=== PATIENT | male | born 1985 | race African-American/Black ===

== ENCOUNTER 2019-11-14 18:52 | Emergency (ER) | payer OTHER ==
[~2019-11-14] VITALS: Ht 193 cm; Wt 90.7 kg
[~2019-11-14 18:52] MED LIST: ACID REDUCER PO; B12INJ PO; BUDEPRION SR150 MG; DESYREL100 MG; FLAGYL500 MG PO; FLEXERIL PO; KLONOPIN2 MG PO; LATUDA120 MG PO; LATUDA40 MG PO; NORCO 5-325 TA1 EACH PO; RISPERDAL 3 MG T3 M1 PO; ULTRAM 50MG TAB50 MG PO; ZOFRAN ODT4 MG PO
[2019-11-14 18:57] VITALS: BP 150/91
[2019-11-14] MEDS ORDERED: NEURONTIN 400M400 M2 PO (19:26)
[2019-11-14] MEDS ORDERED: SERTRALINE HCL100 MG PO (19:27)
[2019-11-14] MEDS ORDERED: ZOLOFT 50 MG TA50 MG PO (19:27)
[2019-11-14 19:40] LABS: URINE BILIRUBIN NEGATIVE (Negative); URINE BLOOD NEGATIVE (Negative); URINE CLARITY CLEAR; URINE COLOR YELLOW; URINE GLUCOSE-RANDOM* NEGATIVE (Negative); URINE KETONES NEGATIVE (Negative); URINE LEUKOCYTES-REFLEX TRACE (Negative); URINE NITRITE-REFLEX NEGATIVE (Negative); URINE PROTEIN (DIPSTICK) NEGATIVE (Negative); URINE SPECIFIC GRAVITY <= 1.005 (1.005-1.035)
[2019-11-14 19:55] LABS: BASOPHILS 1.1 % (0.0-2.0); EOSINOPHILS 1.6 % (0.0-3.0); HEMATOCRIT 36.3 % (42.0-52.0); HEMOGLOBIN 11.3 gm/dL (14.0-18.0); LYMPHOCYTES 57.5 % (24.0-44.0); MCHC 31.2 g/dL (28.0-37.0); MONOCYTES 9.3 % (1.0-8.0); PLATELET COUNT 326 thou/uL (150-400); POLYS 30.5 % (36.0-66.0); RBC 4.71 mil/uL (4.50-6.00); RDW 16.2 % (10.5-14.5); WBC 6.5 thou/uL (4.0-11.0)
[2019-11-14 19:59] LABS: CREATININE 1.1 mg/dL (0.7-1.3); POTASSIUM 3.6 mmol/L (3.5-5.1)
[2019-11-14 20:05] LABS: ALBUMIN 3.7 g/dL (3.4-5.0); TOTAL BILIRUBIN 0.3 mg/dL (<0.1-1.0)
[2019-11-14] MEDS ORDERED: ONDANSETRON HCL4 M2 PO (21:19)
[2019-11-14] MEDS ORDERED: OMEPRAZOLE 20 M20 M1 PO (21:19)
--- NOTE | 2019-11-15 17:21 | EKG ---
[address] [address] ELECTROCARDIOGRAM REPORT Name: FELIPA HADLEY Room #: DEP Scott#: [id number] Admission: 11/14/19 Attend Phys: Discharge: 11/14/19 Date of : 87 Report #: [id number] THIS REPORT FOR: //name// [facility] ED Test Date: 2019-11-14 Test Time: 18:52:01 Pat Name: FELIPA HADLEY Department: Room: Gender: Weathercaster: RHETT : 1985 Requested By: Georges Childs Order Number: [id number] MD: Durga Lombardo Measurements Intervals [place] Rate: 67 P: 42 [place]: 171 QRS: 35 QRSD: 77 T: 23 QT: 375 QTc: 396 Interpretive Statements Sinus rhythm Compared to ECG 10/07/2015 22:46:11 No significant changes Electronically Signed On 11-15-2019 17:21:05 [place] by Durga Lombardo [email or web address] <ELECTRONICALLY SIGNED> By: Durga Lombardo MD 11/15/19 1721 185 51 MD KATHY Ordaz
== END 2019-11-14 21:48 | disposition home or self-care (01) ==
LOC: ER 18:52
PROVIDERS: Nurse Practitioner
DX: R11.10 Vomiting, unspecified (principal); R10.32 Left lower quadrant pain; R07.9 Chest pain, unspecified; K21.9 Gastro-esophageal reflux disease without esophagitis; F31.9 Bipolar disorder, unspecified

== ENCOUNTER 2019-11-20 13:40 | Inpatient (IN) | payer OTHER ==
[~2019-11-20] VITALS: Ht 193 cm; Wt 129.7 kg
[~2019-11-20 13:40] MED LIST changes: +NEURONTIN 400M400 M2 PO; +OMEPRAZOLE 20 M20 M1 PO; +ONDANSETRON HCL4 M2 PO; +SERTRALINE HCL100 MG PO; +ZOLOFT 50 MG TA50 MG PO
[2019-11-20 13:51] VITALS: BP 130/72
[2019-11-20 14:19] LABS: URINE BILIRUBIN NEGATIVE (Negative); URINE BLOOD TRACE (Negative); URINE CLARITY CLEAR; URINE COLOR YELLOW; URINE GLUCOSE-RANDOM* NEGATIVE (Negative); URINE KETONES NEGATIVE (Negative); URINE LEUKOCYTES-REFLEX NEGATIVE (Negative); URINE NITRITE-REFLEX NEGATIVE (Negative); URINE PROTEIN (DIPSTICK) 1+ (Negative); URINE UROBILINOGEN 0.2 E.U./dl (0.2-1.0)
[2019-11-20 14:21] LABS: ABSOLUTE NEUTROPHILS 3.2 thou/uL (1.4-8.2); BASOPHILS 1.7 % (0.0-2.0); EOSINOPHILS 0.9 % (0.0-3.0); HEMOGLOBIN 10.6 gm/dL (14.0-18.0); LYMPHOCYTES 33.3 % (24.0-44.0); MCH 24.8 pg (26.0-34.0); MCHC 32.1 g/dL (28.0-37.0); MCV 77.4 fL (80.0-100.0); MONOCYTES 10.7 % (1.0-8.0); PLATELET COUNT 315 thou/uL (150-400); POLYS 53.4 % (36.0-66.0); RBC 4.27 mil/uL (4.50-6.00); RDW 16.9 % (10.5-14.5)
[2019-11-20 14:30] LABS: CALCIUM 9.1 mg/dL (8.5-10.1); CREATININE 2.1 mg/dL (0.7-1.3); POTASSIUM 4.1 mmol/L (3.5-5.1)
[2019-11-20 14:33] LABS: CASTS None Seen /LPF (None Seen); CRYSTALS None Seen /LPF (None Seen); SQUAMOUS 0-3 Few /LPF (0-3); URINE WBC-REFLEX 0-5 Rare /HPF (0-5)
[2019-11-20 14:34] LABS: BACTERIA-REFLEX 1-9 Few /HPF (None Seen)
[2019-11-20 14:36] LABS: URINE RBC 0-2 Rare /HPF (0-2)
[2019-11-20 14:37] LABS: ALBUMIN 3.7 g/dL (3.4-5.0); TOTAL BILIRUBIN 0.2 mg/dL (<0.1-1.0); TOTAL PROTEIN 7.5 g/dL (6.4-8.2)
[2019-11-20 15:00] LABS: AMP/METHAMP Negative (Negative); BARBITURATES Negative (Negative); BENZODIAZEPINES Negative (Negative); COCAINE Negative (Negative); METHADONE Negative (Negative); OPIATES Negative (Negative); PCP Negative (Negative)
[2019-11-20 16:06] VITALS: BP 119/74
[2019-11-20 17:27] LABS: % SATURATION 7 % (20-39); IRON 20 ug/dL (65-175); TIBC 272 ug/dL (250-450)
[2019-11-20 17:54] VITALS: BP 133/76
[2019-11-20 18:35] VITALS: BP 128/78
--- NOTE | 2019-11-20 19:44 | NUR ---
34 YO MALE ADMITTED TO 439. A&OX4. C/O ABD PAIN AND NAUSEA. ALSO STATES HE HAS NOT HAD HIS PSYCH MEDS ALL DAY. IV INTACT IN R AC. IV CONT FLUIDS STARTED, CLONIPIN, GABAPENTIN, ZOFRAN AND FENTYNL GIVEN FOR SYMPTOMS. ORIENTED PT TO ROOM/ CALL LIGHT.
[2019-11-20 22:38] VITALS: BP 110/73
--- NOTE | 2019-11-21 03:30 | NUR ---
ASSESSED AT START OF SHIFT A&OX4 C/O LOWER OF ABD AND NON CARDIAC CHEST PAIN. PAIN MED AND SCHEDULED NITRO GIVE. PT STATED FEELING MUCH BETTER AFTER NITRO GIVENX1 AND COMPLETE CHEST RELIEF. TAP WATER ENEMA GIVENX2 THIS SHIFT. 1 LARGE LOOSE STOOL NOTED SO FAR WILL CONT TO MONITOR. FAMILY BY BEDSIDE. PT NPO AFTER MIDNIGHT FOR COLONOSCPY TOMORROW. PT UP AD RAEANN WILL CONT WITH POC TILL EOS.
[2019-11-21 05:35] VITALS: BP 107/72
[2019-11-21 05:57] LABS: ALBUMIN 3.4 g/dL (3.4-5.0); CALCIUM 8.7 mg/dL (8.5-10.1); CREATININE 2.2 mg/dL (0.7-1.3); PHOSPHORUS 4.7 mg/dL (2.5-4.9); POTASSIUM 4.6 mmol/L (3.5-5.1)
[2019-11-21 08:20] VITALS: BP 133/78
--- NOTE | 2019-11-21 13:56 | NUR ---
PT A&OX4. AMBULATES SELF IN ROOM AND HALLWAY. IV INFUSING FLUIDS W/O COMPS IN R AC. NPO SINCE MN FOR EGD AND POSSIBLE COLONOSCOPY. ATIVAN IV ORDERED AND GIVEN THIS AM FOR ANXIETY. MOTHER AND S/O AT THE BEDSIDE. WILL CONT POC.
--- NOTE | 2019-11-21 15:40 | NUR ---
Pt is currently out of his room getting EGD. Engineering Program Analyst visited with the pt's twin brother Rolan who is also a pt here. The pt and his brother are known to cm from other admissions. 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 They both live with their mother. The pt is up ad vidhya and normally indep. He has a mental health history and follows closely with his psychiatrist. He has supportive family. He has Medicare part A coverage through [employer] disability d/t schizophrenia/bipolar disorder. No cm interventions are indicated at this time. Will remain available should dc needs arise.
[2019-11-21 16:37] VITALS: BP 148/85
[2019-11-21 20:15] VITALS: BP 126/75
--- NOTE | 2019-11-21 23:00 | NUR ---
ASSESSMENT COMPLETED UPON START OF SHIFT. PT INTREASTED IN KNOWING WHEN HE MAY BE DISCHARGED. PT ALSO WANTED TO HAVE THE MEDS ORDERED BY DR ROMAN. PT DENIES ANY ABDOMINAL PAIN OR ANY NAUSEA. MOM IN ROOM. PT IS IN A PLEASANT MOOD AND IS COOPEARATIVE.DRINKING AND EATING OKAY.PROGRESSING TOWARDS CARE GOALS.
[2019-11-22 04:33] VITALS: BP 142/77
--- NOTE | 2019-11-22 05:55 | P ---
[facility] [place] [address] PROCEDURE REPORT Name: FELIPA HADLEY BONANZA Room #: 439-P ADM IN M.R.#: [id number] Admission: 11/20/19 Attend Phys: Karo Flores Discharge: Date of : 87 Report #: [id number] THIS REPORT FOR: //name// CC: [facility] physician/PCP Karo Flores Gatito Nigelcora AURY MCBRIDE DATE OF SERVICE: 11/21/2019 PROCEDURE: Esophagogastroduodenoscopy with biopsy. He is a patient of Dr. Flores. INDICATION FOR PROCEDURE: Abdominal pain, nausea, vomiting, microcytic anemia. Informed consent for this procedure was obtained after the risks of the procedure were explained. The risks include but are not limited to the following: Bleeding, perforation, infection, complications of sedation and the possibility I could miss something. Anesthesia kindly provided deep sedation for this procedure. With the patient in the left lateral decubitus position, the Olympus upper videoscope was introduced through the upper esophageal sphincter and advanced under direct visualization to the third portion of the duodenum. Findings are noted on withdrawal of the scope. The visualized portion of the second portion of the duodenum, third portion of the duodenum appeared normal. The ampulla appears normal. The duodenal bulb is mildly erythematous in patches. Etiology is not certain. Pylorus, normal mucosa. Antrum, erosive antral gastritis is noted. Biopsies were obtained x 2 for histopathology. Good hemostasis was noted after those biopsies. Body, normal mucosa. Cardia and fundus, normal mucosa. Retroflex view did not reveal any hiatal hernia. The scope was withdrawn to the esophagus. The Z-line is appropriately located at the top of the gastric folds and appears normal. The esophageal mucosa appears normal throughout its entirety. The scope was withdrawn. The patient went to the recovery area in stable condition. He tolerated the procedure well. IMPRESSION: 1. Patchy erythema of the duodenal bulb. 2. Erosive antritis biopsies x 2, taken with good hemostasis noted after the biopsies. RECOMMENDATIONS: To await the biopsy results. We will continue him on Protonix 40 mg p.o. every day for 2 months. I would recommend the patient avoid using Goody's powders as they contain aspirin that may cause ulcers and erosions. He [address] [address] PROCEDURE REPORT Name: FELIPA HADLEY BONANZA Room #: 439-P [facility] IN .R.#: [id number] Admission: 11/20/19 Attend Phys: Karo Flores Discharge: Date of : 87 Report #: [id number] can have a diet as tolerated. We will guaiac stools for blood. He should have a colonoscopy as an outpatient if his stools remain guaiac positive after treatment for the erosive antritis. Thank you very much once again for allowing me to participate in his care. <ELECTRONICALLY SIGNED> By: Jackie Jha DO 11/22/19 0555 1453 2253 Jackie Jha DO /nt
[2019-11-22 06:39] LABS: ALBUMIN 3.2 g/dL (3.4-5.0); CALCIUM 8.6 mg/dL (8.5-10.1); CREATININE 2.2 mg/dL (0.7-1.3); PHOSPHORUS 5.2 mg/dL (2.5-4.9); POTASSIUM 4.2 mmol/L (3.5-5.1)
[2019-11-22 07:30] VITALS: BP 109/64
[2019-11-22] MEDS ORDERED: PANTOPRAZOLE SO40 M1 PO (09:50)
--- NOTE | 2019-11-22 10:39 | NUR ---
PT RESTING IN BED TOOK AM MEDS. NO C/O PAIN. RENAL DOCTOR HERE TO SEE STATES NO DIAYLSIS NEEDED. HOSPITALIST HERE TO SEE PATIENT AND DISCHARGED PATIENT FOR TODAY.
[2019-11-22 12:50] VITALS: BP 109/64
--- NOTE | 2019-11-22 14:43 | NUR ---
DISCHARGE PAPERS GONE OVER WITH PATIENT SIGNED AND COPY IN CHART. IV ACSESS DCD. ALL BELONGINGS PACKED AND SENT WITH PATIENT.
[2019-11-22 14:45] VITALS: BP 109/64
--- NOTE | 2019-11-23 16:06 | PATH ---
[facility] [address] [place] [address] PATHOLOGY RPT PROCEDURE Name: YARED TERRAZAS WINFALL Room #: 439-P DIS IN M.R.#: [id number] Admission: 11/20/19 Date of : 87 Discharge: 11/22/19 Report #: [id number] Path Case #: [id number] [facility] Accession Number: [id number] . 01 Material submitted: . stomach - GASTRIC BX . 01 Clinical history: . R/O H. pylori Pre-op diagnosis: Abdominal pain Post-op diagnosis: Erosive gastritis . 02 Diagnosis: Gastric mucosa, gastric rule out H. pylori, endoscopic biopsy: - Moderate reactive gastropathy. - Negative for intestinal metaplasia or atrophy. - Negative for Helicobacter pylori (properly-controlled immunohistochemical stain performed). . (IUV:mml; 11/23/2019) QL 11/23/2019 1215 Local . 02 Electronically signed: . La Felipe MD, Pathologist NPI- [id number] . 01 Gross description: . The specimen is received in formalin, labeled "Yared Terrazas, gastric biopsy, R/O H. pylori". Received are two segments of pale izaguirre soft tissue ranging in size from 0.3 to 0.5 cm in maximum dimensions. The specimen is submitted entirely in cassette A1. (CAA; 11/22/2019) QA/[facility] 11/22/2019 0939 Local . 02 Pathologist provided ICD-10: K31.9 . 02 CPT . 007847, T97561 Specimen Comment: A courtesy copy of this report has been sent to [phone] Specimen Comment: Report sent to Performed at: 01 [facility] [address] [id number] MD Robby Guzman MD Phone: [phone] Performed at: [address] [address] PATHOLOGY RPT PROCEDURE Name: YARED TERRAZAS Room #: 439-P [facility] IN M.R.#: [id number] Admission: 11/20/19 Date of : 87 Discharge: 11/22/19 Report #: [id number] Path Case #: [id number] [address] [place] [id number] MD La Felipe MD Phone: [phone]
== END 2019-11-22 14:46 | disposition home or self-care (01) | DRG 392 ==
LOC: ER 13:40 → EROBS 15:55 → 4S 15:55
PROVIDERS: Nurse Practitioner; Physician Assistant; ADMIT Hospitalist
PROC: 0DB68ZX Excision of Stomach, Via Natural or Artificial Opening Endoscopic, Diagnostic (ICD-10-PCS; principal; 2019-11-21)
DX: K29.60 Other gastritis without bleeding (principal); F13.239 Sedative, hypnotic or anxiolytic dependence with withdrawal, unspecified; N17.9 Acute kidney failure, unspecified; D50.9 Iron deficiency anemia, unspecified; K21.9 Gastro-esophageal reflux disease without esophagitis; F31.9 Bipolar disorder, unspecified; E86.0 Dehydration; F43.10 Post-traumatic stress disorder, unspecified; F20.9 Schizophrenia, unspecified; L53.8 Other specified erythematous conditions; N14.1 Nephropathy induced by other drugs, medicaments and biological substances; T50.8X5A Adverse effect of diagnostic agents, initial encounter; Z87.891 Personal history of nicotine dependence; Y92.89 Other specified places as the place of occurrence of the external cause; Z79.899 Other long term (current) drug therapy
CPT/HCPCS: 10195; 62110; 62900; 70005

== ENCOUNTER → 2020-06-02 | Outpatient (CLI) | payer OTHER ==
[~2020-06-02] MED LIST changes: +PANTOPRAZOLE SO40 M1 PO
== END ==
LOC: ULTRA 08:41
PROVIDERS: ATTEND Family Medicine
DX: K80.80 Other cholelithiasis without obstruction (principal)

== ENCOUNTER → 2020-06-24 | Outpatient (CLI) | payer OTHER | LOC: NUC 06-23 14:00 | PROVIDERS: ATTEND Surgery | DX: R10.10 Upper abdominal pain, unspecified (principal) ==

== ENCOUNTER → 2020-07-11 | Outpatient (CLI) | payer OTHER | LOC: LAB 08:18 | PROVIDERS: ATTEND Anesthesiology | DX: Z01.812 Encounter for preprocedural laboratory examination (principal); Z20.828 Contact with and (suspected) exposure to other viral communicable diseases ==

== ENCOUNTER 2021-02-02 13:46 | Emergency (ER) | payer OTHER ==
[~2021-02-02] VITALS: Ht 193 cm; Wt 122.5 kg
[2021-02-02] MEDS ORDERED: CLONAZEPAM2 MG PO ×2 (13:57→15:21)
[2021-02-02] MEDS ORDERED: PROZAC20 MG PO (13:57)
[2021-02-02] MEDS ORDERED: OXCARBAZEPINE600 MG PO ×2 (13:57→15:20)
[2021-02-02] MEDS ORDERED: ESKALITH300 MG PO (13:57)
[2021-02-02 14:38] LABS: HEMATOCRIT 38.5 % (42.0-52.0); HEMOGLOBIN 12.2 gm/dL (14.0-18.0); MCH 25.1 pg (26.0-34.0); MCHC 31.6 g/dL (28.0-37.0); MCV 79.5 fL (80.0-100.0); RBC 4.84 mil/uL (4.50-6.00); RDW 16.3 % (10.5-14.5); WBC 8.6 thou/uL (4.0-11.0)
[2021-02-02 14:55] LABS: CREATININE 1.4 mg/dL (0.7-1.3); POTASSIUM 3.5 mmol/L (3.5-5.1)
[2021-02-02 15:03] LABS: ALBUMIN 4.1 g/dL (3.4-5.0); TOTAL BILIRUBIN 0.4 mg/dL (0.2-1.0); TOTAL PROTEIN 8.1 g/dL (6.4-8.2)
[2021-02-02 15:41] VITALS: BP 134/73
== END 2021-02-02 15:41 | disposition home or self-care (01) ==
LOC: ER 13:46
PROVIDERS: Nurse Practitioner Family
DX: R04.2 Hemoptysis (principal); K21.9 Gastro-esophageal reflux disease without esophagitis; Z79.899 Other long term (current) drug therapy

== ENCOUNTER 2021-11-05 17:12 | Inpatient (IN) | payer OTHER ==
[~2021-11-05] VITALS: Ht 195.6 cm; Wt 122.5 kg
[2021-11-05 17:12] VITALS: BP 144/88
[~2021-11-05 17:12] MED LIST changes: +CLONAZEPAM2 MG PO; +ESKALITH300 MG PO; +OXCARBAZEPINE600 MG PO; +PROZAC20 MG PO
--- NOTE | 2021-11-05 17:13 | NUR ---
1700 30 MG ETOMIDATE GIVEN THRU IV RAC 120 MG SUCCS GIVEN 1701 7.0 ET TUBE PLACED, 23 @ LIP 1704 OG PLACED 70 @ LIP 1712 RAD AT BEDSIDE FOR CXR
[2021-11-05 17:37] LABS: HEMATOCRIT 44.3 % (42.0-52.0); HEMOGLOBIN 12.3 gm/dL (14.0-18.0); MCH 24.4 pg (26.0-34.0); MCHC 27.8 g/dL (28.0-37.0); PLATELET COUNT 366 thou/uL (150-400); RBC 5.04 mil/uL (4.50-6.00); RDW 18.1 % (10.5-14.5); WBC 20.5 thou/uL (4.0-11.0)
[2021-11-05 17:41] LABS: ALBUMIN 4.6 g/dL (3.4-5.0); ANION GAP 34 mmol/L (7-16); BUN 14 mg/dL (7-18); CALCIUM 11.8 mg/dL (8.5-10.1); CHLORIDE 106 mmol/L (98-107); DIRECT BILIRUBIN 0.2 mg/dL (<0.1-0.2); GLUCOSE 281 mg/dL (74-106); LIPASE 84 U/L (73-393); SALICYLATE < 2.8 mg/dL (2.8-20.0); SGOT 60 U/L (15-37); SGPT 41 U/L (16-63); SODIUM 149 mmol/L (136-145); TOTAL BILIRUBIN 0.6 mg/dL (0.2-1.0); TOTAL PROTEIN 8.8 g/dL (6.4-8.2)
[2021-11-05 17:43] LABS: CO2 9 mmol/L (21-32)
[2021-11-05 17:45] LABS: BE(vivo) -25.7 mmol/L (-2 to +3); PCO2 30.9 mmHg (35.0-45.0); PO2 109.1 mmHg (80.0-100.0); sO2 93.7 % (92.0-98.0)
[2021-11-05 17:46] LABS: pH 6.908 (7.360-7.450)
[2021-11-05 17:53] LABS: URINE BILIRUBIN NEGATIVE (Negative); URINE BLOOD NEGATIVE (Negative); URINE CLARITY CLEAR; URINE COLOR YELLOW; URINE GLUCOSE-RANDOM* NEGATIVE (Negative); URINE KETONES 1+ (Negative); URINE LEUKOCYTES-REFLEX NEGATIVE (Negative); URINE NITRITE-REFLEX NEGATIVE (Negative); URINE PROTEIN (DIPSTICK) NEGATIVE (Negative); URINE SPECIFIC GRAVITY 1.025 (1.005-1.035)
[2021-11-05 18:07] LABS: AMP/METHAMP Negative (Negative); BARBITURATES Negative (Negative); BENZODIAZEPINES Negative (Negative); COCAINE Negative (Negative); METHADONE Negative (Negative); OPIATES Negative (Negative); PCP Negative (Negative)
[2021-11-05 20:11] LABS: ABSOLUTE NEUTROPHILS 5.3 thou/uL (1.4-8.2); METAMYELOCYTES 3 %
[2021-11-05 21:07] LABS: BE(vivo) -6.2 mmol/L (-2 to +3); HCO3 18.2 mmol/L (22.0-26.0); PCO2 32.2 mmHg (35.0-45.0); PO2 118.1 mmHg (80.0-100.0); pH 7.369 (7.360-7.450); sO2 98.2 % (92.0-98.0)
[2021-11-06 02:29] LABS: HEMOGLOBIN 11.4 gm/dL (14.0-18.0); MCHC 30.9 g/dL (28.0-37.0); RBC 4.57 mil/uL (4.50-6.00); RDW 16.4 % (10.5-14.5); WBC 10.1 thou/uL (4.0-11.0)
[2021-11-06 02:35] LABS: CREATININE 1.9 mg/dL (0.7-1.3)
[2021-11-06 02:56] LABS: CALCIUM 8.5 mg/dL (8.5-10.1); POTASSIUM 3.6 mmol/L (3.5-5.1)
[2021-11-06 02:59] LABS: MCV 80.8 fL (80.0-100.0)
[2021-11-06 06:00] VITALS: BP 117/74
--- NOTE | 2021-11-06 07:47 | EKG ---
[address] [address] ELECTROCARDIOGRAM REPORT Name: FELIPA HADLEY Room #: 170-1 ADM IN M.R.#: [id number] Admission: 11/05/21 Attend Phys: Nathaniel Phillips MD Discharge: Date of : 87 Report #: [id number] [facility] ED Test Date: 2021-11-05 Test Time: 17:12:22 Pat Name: FELIPA HADLEY Department: Room: 170 Gender: M Flight Attendant/Inflight Supervisor: SHANT : 1985 Requested By: Eladio Toure Order Number: [id number] MD: Douglas Barajas Measurements Intervals [place] Rate: 122 P: 150 SD: 134 QRS: 69 QRSD: 94 T: -8 QT: 340 QTc: 485 Interpretive Statements Sinus or ectopic atrial tachycardia Borderline T abnormalities, diffuse leads Borderline prolonged QT interval Baseline wander in lead(s) V5,V6 Compared to ECG 11/14/2019 18:52:01 T-wave abnormality now present Sinus rhythm no longer present Electronically Signed On 11-06-2021 7:46:55 DAYCARE MANAGER by Douglas Barajas [email or web address] <ELECTRONICALLY SIGNED> By: Douglas Barajas MD, FAC 11/06/21 0746 171 11 Douglas Barajas MD, [facility] /EPI
[2021-11-06 09:42] LABS: BE(vivo) -2.6 mmol/L (-2 to +3); PCO2 42.8 mmHg (35.0-45.0); PO2 61.1 mmHg (80.0-100.0); pH 7.348 (7.360-7.450); sO2 90.2 % (92.0-98.0)
[2021-11-06 12:03] VITALS: BP 114/73
--- NOTE | 2021-11-06 15:07 | NUR ---
IJ PLACED IN ER
[2021-11-06 22:15] LABS: BE(vivo) -6.2 mmol/L (-2 to +3); HCO3 20.8 mmol/L (22.0-26.0); PCO2 47.9 mmHg (35.0-45.0); PO2 85.5 mmHg (80.0-100.0); pH 7.256 (7.360-7.450)
[2021-11-07 02:31] VITALS: BP 152/79
[2021-11-07 04:39] VITALS: BP 124/81
--- NOTE | 2021-11-07 04:44 | NUR ---
PT ADMITTED TO RM 201 FROM ER, ALERT AND ORIENTED WITH PERIODS OF CONFUSION, ST ON TELE, ADMISSION ASSESSMENT, EDUCATION AND HX COMPLETED, L SHOULDER SLING IN PLACE, TOLERATED THIN LIQUIDS, ON 10L OF O2 VIA NASAL CANNULA, NO ACUTE DISTRESS, WILL CONTINUE TO MONITOR
[2021-11-07 06:06] LABS: GLYCOHEMOGLOBIN (HGB A1C) 5.7 % (4.8-5.6)
[2021-11-07 07:31] VITALS: BP 152/84
--- NOTE | 2021-11-07 10:35 | HC ---
[facility] [place] [address] CONSULTATION Name: FELIPA AHDLEY [place] Room #: 201-P [facility] IN M.R.#: [id number] Admission: 11/05/21 Attend Phys: Karo Flores Discharge: Date of : 87 Report #: [id number] THIS REPORT FOR: cc: David Umanzor MD, Neal A. MD Kneidel, Matthew T. MD ~ DATE OF SERVICE: 11/06/2021 CHIEF COMPLAINT: Left shoulder dislocation. HISTORY OF PRESENT ILLNESS: This is a 36-year-old gentleman who presented yesterday to the Emergency Room with altered mental status and seizures. He had multiple seizures yesterday and there was concern to protect his own airway, so he was intubated. He apparently had a central line placed today and on those x-rays they noted a left shoulder fracture dislocation. MEDICAL HISTORY: Significant for seizures. FAMILY HISTORY: Positive for diabetes. He has a history of paranoid schizophrenia, PTSD, anxiety, bipolar disorder, depression, anxiety, gastroesophageal reflux disease. SURGICAL HISTORY: Significant for testicular surgery and cholecystectomy. SOCIAL HISTORY: Negative for tobacco or alcohol use. PHYSICAL EXAMINATION: The patient is intubated. He does have pain with any range of motion through his left upper extremity consistent with a shoulder dislocation. PROCEDURE: In listing the help of the anesthesiologist, the patient was provided propofol and using a traction maneuver, his shoulder was reduced as verified with x-ray verification. IMPRESSION: Left shoulder closed dislocation, status post reduction. PLAN: At this point will be to proceed with a shoulder immobilizer for management of the dislocation. He is to be nonweightbearing to his left upper extremity. [facility] [address] [place] [address] CONSULTATION Name: FELIPA HADLEY RAY Room #: 201-P ADM IN M.R.#: [id number] Admission: 11/05/21 Attend Phys: Karo Flores Discharge: Date of : 87 Report #: [id number] Thank you for allowing me to participate in the care of this pleasant patient. We will follow along with you. <ELECTRONICALLY SIGNED> By: Dennis Booth MD 11/07/21 1035 1515 2121 Dennis Booth MD /nt
[2021-11-07 11:39] VITALS: BP 128/72
[2021-11-07 15:15] VITALS: BP 146/76
--- NOTE | 2021-11-07 17:48 | NUR ---
Patient is A/O with unorganized thinking, Auditory hallucinations noted off and on through out the day. PRN seroquel given. Patient thought process appears better with tv off and external stimulations are minimized. vss afebrile. continues on sz precautions
[2021-11-07 19:08] VITALS: BP 157/103
[2021-11-08 03:04] VITALS: BP 161/111
--- NOTE | 2021-11-08 03:04 | NUR ---
NURSING NOTE: SHIFT SUMMARY: PT ALERT AND ORIENTED TO PERSON AND PLACE. HAS PERIODS OF CONFUSION WITH AUDITORY AND VISUAL HALLUCINATIONS. AT START OF SHIFT, THIS NURSE ATTEMPTED TO ASK PATIENT IF IT WAS OK TO GET HIS BLOOD SUGAR. PT STUCK HAND OUT IF TO GET HIS BLOOD SUGAR TAKEN, AND THEN YANKED IT AWAY STATING, "I DON'T THINK SO." HE THEN PROCEEDED TO DEMAND HIS MEDICATIONS "RIGHT NOW". THIS NURSE WENT AND RETRIEVED ALL OF PATIENT'S MEDICATIONS THAT WERE DUE AND BRUOUGHT THEM TO THE PATIENT. WHEN ATTEMPTED TO GIVE PAITENT THE MEDICATIONS, HE STATED, I DON'T THINK SO AND TURNED HIS HEAD AWAY." TWO OTHER NURSES ON UNIT ATTEMPTED TO GIVE THE PATIENT HIS MEDICATIONS AND HE EITHER JUST STARED AT THEM OR STATED, "I DON'T THINK SO." PT BEHAVIOR HAS REMAINED THE SAME THROUGHOUT THE SHIFT, WITH PATIENT REFUSING ANY TYPE OF PATIENT CARE. WAS ABLE TO OBTAIN 2 SETS OF VS BUT THE PATIENT WAS VERY VERBALLY AGGRESSIVE BOTH TIMES, YELLING OUT AND ASKING FOR PEOPLE THAT WERE NOT HERE. HAS NOT NAPPED OR SLEPT ALL SHIFT. CURRENTLY SITTING UP IN BED, EATING AND WATCHING TELEVISION. ALL VS AND ASSESSMENTS CHARTED, WILL CONTINUE TO MONITOR.
--- NOTE | 2021-11-08 04:31 | NUR ---
NURSING NOTE: GEODON GIVEN: AT APPROXIMATELY 0330 TODAY, PT BEGAN TO YELL FROM ROOM AND REPEATEDLY PUT ON HIS CALL LIGHT ASKING FOR HIS TWIN BROTHER AND MAKING RANDOM UNCOMPREHENSIBLE COMMENTS. THIS RN AND FARZAD RN. ATTEMPTED TO TALK WITH PATIENT AND DESCALATE THE BEHAVIOR WITH REORIENTATION AND REDIRECTION. PT LET THIS NURSE REPLACE CARDIAC LEADS THAT HE HAD TAKEN OFF AND THEN HIS AFFECT CHANGED AND HE STARTED SHOUTING RANDOM ACCUSATIONS FIXATING ON "THE COLOR WHEEL,AND EVERYTHING BAD HAPPENS ON TUESDAY". JAYME INFO PRINT PRESS OPERATOR NOTIFIED AT THIS TIME AND ORDERS RECEIVED FOR 1MG IV ATIVAN X1 TIME. SECURITY NOTIFIED AT SAME TIME D/T PATIENT SWINGING HIS ARMS OUT, SHOVING HIS FOOD TRAY OFF THE TABLE AND HITTING THIS NURSE WITH A CUP FULL OF WATER. INFO PRINT PRESS OPERATOR NOTIFIED PER CUPROUS CHLORIDE HELPER AND ORDERS FOR GEODON 10 MG X1 TIME RECEIVED. MEDICATION GIVEN ORDERED WITH ASSISTANCE PER SECURITY. PT CONTINUED TO YELL AND RANT FOR APPROXIMATELY 20 MINUTES AND IS NOW RESTING WITH EYES CLOSED. RESP EVEN AND NON LABORED. WILL CONTINUE TO MONITOR.
[2021-11-08 07:48] VITALS: BP 152/97
[2021-11-08 11:38] VITALS: BP 117/68
[2021-11-08 16:50] VITALS: BP 144/74
[2021-11-08 19:32] VITALS: BP 157/87
--- NOTE | 2021-11-09 04:10 | NUR ---
IRRITABLE, IMPULSIVE AND NON COMPLIANT. CONTINUOUSLY ON THE CALL REYNOSO WITH RANDOM REQUESTS SUCH CHICKEN, MONEY FROM HIS MOM, TO HAVE HIS SADLER TAKEN OUT. INITIALLY STATES THAT HE IS UNABLKE TO WALK BECAUSE OF HIS SHOULDER. TAKES SOME MEDICATIONS WHILE REFUSING OTHERS. DOES NOT RESPOND WELL TO REDIRECTION. NO S/S OF DISTRESS NOTED.
[2021-11-09 04:33] VITALS: BP 147/91
[2021-11-09 07:29] VITALS: BP 180/113
[2021-11-09 11:05] VITALS: BP 152/104
--- NOTE | 2021-11-09 14:28 | NUR ---
TOOK OVER CARE OF THIS PATIENT AT 0700. PT VERBALLY AGGRESSIVE WITH STAFF AT THROUGHOUT ENTIRE SHIFT. PT NOW DOES NOT RESPOND TO STAFF'S QUESTIONS AND REFUSES ALL PATIENT CARES. PT HAS REFUSED ALL MEDICATIONS DURING THIS SHIFT. PT STARES AT STAFF AND DOES NOT RESPOND. PT LAYING IN BED WATCHING TV AT THIS TIME. PT APPEARS IN NO DISTRESS. PHYSICAL ASSESSMENTS CHARTED. VSS. FALL PRECAUTIONS AND SEIZURE PRECAUTIONS IN PLACE.
[2021-11-09 15:10] VITALS: BP 142/91
--- NOTE | 2021-11-09 15:29 | NUR ---
PATIENT ADMITTED FOR STATUS EPILEPTICUS. CHART REVIEWED AND DISCUSSED WITH CARE TEAM. CM MET WITH PT THIS DAY. CM ROLE INTRODUCED. PT WOULD NOT SPEAK OR HAVE EYE CONTACT WITH CM. SPOKE TO PTS NURSE FOR UPDATES. AWAITING THERAPY RECOMMENDATION FOR INPUT ON HOME HEALTH IF INDICATED. STAFF REPORTS PT CAN BE AGRESSIVE WITH WORDS AND IMPULSIVE. SECURITY WAS CALLED. THIS CM CALLED PTS FATHER, AUTHERIZED CONTACT. LEFT MESSAGE FOR RETURN CALL TO ASSIST WITH DC PLANNING. CM WILL FOLLOW.
--- NOTE | 2021-11-09 18:37 | NUR ---
PT REFUSING ALL PATIENT CARES, ORAL AND IV MEDICATIONS. PATIENT'S MOTHER SPOKE WITH DR. ROMAN REGARDING CASE. PRN IM MEDICATIONS RECEIVED FROM DR. ROMAN TO ASSIST WITH PATIENTS ANXIETY AND AGGRESSION. WILL CONTINUE TO MONITOR. PT DOES NOT APPEAR IN ANY DISTRESS. CONTINUES TO NOT RESPOND TO STAFF EXCEPT WITH VERBALLY AGGRESIVE OUTBURSTS.
--- NOTE | 2021-11-10 06:21 | NUR ---
ASSUMED CARE OF PT AT 1900. PT ASSESSED TO BE AOX4 60F PRESENTING WITH SEPSIS AND WOUNDS. PT WAS ABLE TO REST QUIETLY THROUGHOUT THE NIGHT WITH FEW COMPLAINTS, VSS. PT CAN AMBULATES X1 WITH A WALKER TO THE BATHROOM, IS STABLE ON ROOM AIR, VOIDS AFTER SADLER REMOVAL, PAIN AND ANXIETY CONTROLLED WITH ORAL MEDICATIONS, SACRAL WOUNDS DRESSED WITH PAD. NO FURTHER ISSUES, WILL CONT TO MONITOR.
[2021-11-10 07:05] VITALS: BP 150/103
--- NOTE | 2021-11-10 07:19 | NUR ---
ASSUMED CARE OF PT AT 1900. PT ASSESSED TO BE AOX4 36M PRESENTING WITH UNCONTROLLED PSYCH ISSUES SECONDARY TO SEIZURES. PT WAS ABLE TO REST IN ROOM THROUGHOUT THE NIGHT, VSS. PT IS EXTREMELY DIFFICULT AND DOES NOT WANT ANYONE TO MESS WITH HIM, TOUCH HIM, OR TO GET MEDICATIONS. EARLY IN PM HAD SECURITY ASSIST WITH IM INJECTIONS. INJECTIONS DID LITTLE FOR PT. PT CONTINUES TO REFUSE ALL ORAL MEDS AFTER EDUCATION, SEEMS TO SOIL HIMSELF TO ANNOY STAFF, WILL NOT RESPOND TO PROMPTS OR QUESTIONS, ETC. THOUGHT TIME TALKING ALONE WITH PT FOR AN HOUR MAY HAVE BUILT SOME RAP[place], BUT SEEMS TO DISIPPATE QUICKLY SURROUNDING PSYCHOSIS.
[2021-11-10 11:00] VITALS: BP 133/94
--- NOTE | 2021-11-10 11:25 | NUR ---
PATIENT HAD AN INCONTINENT BOWEL MOVEMENT IN BED AND IS REFUSING TO ALLOW STAFF TO CLEAN HIM DESPITE EDUCATION PROVIDED TO PATIENT. WILL FOLLOW-UP WITH PATIENT PERIODICALLY TO RE-EVALUATE WHETHER HE WILL ALLOW US TO CLEAN HIM.
--- NOTE | 2021-11-10 14:22 | NUR ---
OSWALDO SPOKE TO ESTRELLITA WITH [facility] REGARDING A CONSULT FOR INPATIENT PSYCH. SHE INDICATED SHE WOULD HAVE CRIPPLE CUTTER OUT TODAY FOR EVAL. CM WILL FOLLOW.
[2021-11-10 15:28] VITALS: BP 149/85
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
--- NOTE | 2021-11-10 16:00 | NUR ---
JOSE MANUEL WITH [facility] CAME TO SEE PT THIS DAY. CM INSTRUCTED PT UNABLE TO ADMIT TO [facility] AT THIS TIME BECAUSE WAS ADMITTED TO HOSPITAL. PTS CAN ONLY BE ADMITTED TO [facility] THROUGHT THE ED. PT CAN HOWEVER GO TO [facility]. [address] [place] [address]. 9-9 AND MUST ARRIVE BEFORE 730P TO BE SEEN. PT CAN WALK IN FOR SERVICES. JOSE MANUEL REPORTS PT IS NOT A DANGER TO HIMSELF. UNSURE OF HOW PT WILL TRANSPORT TO [facility]. CM CALLED PT CONTACT MOOKIE CARDENAS AND LEFT ANOTHER MESSAGE. [facility] IS PROVIDER FOR REDISCOVER AND THIS IS PTS LOCATION BASED ON PTS ZIPCODE. CM WILL CONTINUE TO REACH MOTHER OR FATHER FOR DC PLANNING.
[2021-11-10 19:29] VITALS: BP 146/82
[2021-11-11 03:21] VITALS: BP 168/108
--- NOTE | 2021-11-11 03:51 | NUR ---
RECEIVED PATIENT AT 1900H.ASSESSMENT DONE CHARTED.HAD EPISODES OF AGRESSIVENESS AND MOSTLY NON COMPLIANT WITH CARE.AGREES TO TAKE SOME MEDS BUT REFUSES OTHER MEDS.FALL PREVENTION MEASURES MAINTAINED.SEIZURE PRECAUTION OBSERVED.NO SIGNS OF DISTRESS.TO CONTINOUSLY MONITOR.
[2021-11-11 05:15] VITALS: BP 145/85
[2021-11-11 05:56] LABS: URINE BILIRUBIN NEGATIVE (Negative); URINE BLOOD 3+ (Negative); URINE CLARITY CLEAR; URINE COLOR YELLOW; URINE GLUCOSE-RANDOM* NEGATIVE (Negative); URINE KETONES 1+ (Negative); URINE LEUKOCYTES-REFLEX NEGATIVE (Negative); URINE NITRITE-REFLEX NEGATIVE (Negative); URINE PROTEIN (DIPSTICK) TRACE (Negative); URINE SPECIFIC GRAVITY 1.015 (1.005-1.035); URINE UROBILINOGEN 0.2 E.U./dl (0.2-1.0)
[2021-11-11 07:00] VITALS: BP 144/81
[2021-11-11 07:05] LABS: CASTS None Seen /LPF (None Seen); SQUAMOUS 0-3 Few /LPF (0-3)
[2021-11-11 07:06] LABS: BACTERIA-REFLEX 1-9 Few /HPF (None Seen); CRYSTALS None Seen /LPF (None Seen); URINE RBC 1-2 Rare /HPF (NONE SEEN); URINE WBC-REFLEX 0-5 Rare /HPF (0-5)
[2021-11-11 12:08] VITALS: BP 151/104
--- NOTE | 2021-11-11 13:30 | NUR ---
[facility] CM SPOKE TO PT WHO WOULD NOT ANSWER MY QUESTIONS OR HAVE EYE CONTACT. CM SPOKE TO DR ROMAN WHO CLARIFIED PT IS NOT VOLUNTARILY WILLING TO DISCHARGE TO IN PSYCH FACILTY. 2 AFFIDAVITS PLACED ON CHART ONE FROM DR ROMAN AND ONE FROM RN. PT IS NOT MEDICALLY STABLE TO DC THIS DAY. CM WILL CONTINUE TO FOLLOW FOR DC PLANNING.
[2021-11-11 19:07] VITALS: BP 119/80
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
[2021-11-12] VITALS (19 sets, daily range): BP systolic 118–167; BP diastolic 72–134
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
--- NOTE | 2021-11-12 07:53 | NUR ---
RN RECEIVED ASSIGNMENT FROM INSURANCE AGENT, WAS TOLD FROM INSURANCE AGENT PATIENT HAS BEEN AGITATED ALL EVENING, RN WITNESSED PATIENT TREMBLING THE BED SHAKING THEN SUDDENLY RELAXING, VERY VOLATILE PRESENTATIONS, VERY UNPREDICTABLE, WHEN IN THE ROOM WITH THE PATIENT, PT IS HAVING FLIGHT OF THOUGHTS, INCOHERENT SPEECHES, SPEECHES THAT DO NOT CONNECT, TALKING ABOUT "HITLER AND BLACKS". PT TRYING TO GET OUT OF BED FEW TIMES, PUTTING HIS HEAD UP "YALL NEED TO GET ME OFF OF THIS, I AM NOT A AGITATIONAL PERSON", RN DOES NOT FEEL SAFE AT ALL FOR PATIENT TO GET OUT OF RESTRAINTS AT THIS TIME. RN CONTACTED REGARDING ADJUSTMENT OF CURRENT MEDICATION REGIMEN AND NEEDING ANOTHER EVAL SINCE THE LAST NIGHT'S EVENT. RN WILL REMAIN IN THE PATIENT'S ROOM.
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
--- NOTE | 2021-11-12 14:08 | NUR ---
Cont's to sit bolt upright in bed periodically. Talking nonstop. Inappropriate laughing that lasts 1-2 minutes. Talking to people not in room. Does not reorient. Hands & feet cool to touch. Refuses blanket.--vw
[2021-11-12 19:40] LABS: ALBUMIN 3.1 g/dL (3.4-5.0); DIRECT BILIRUBIN 0.2 mg/dL (<0.1-0.2); TOTAL BILIRUBIN 0.4 mg/dL (0.2-1.0); TOTAL PROTEIN 7.1 g/dL (6.4-8.2)
[2021-11-13] VITALS (12 sets, daily range): BP systolic 109–158; BP diastolic 61–104
--- NOTE | 2021-11-13 06:25 | NUR ---
ASSUMED CARE OF PT AT 1900. PT INITIALLY ON FOUR POINT RESTRAINTS. RESTRAINTS CHANGED TO BILATERAL SECURITY RESTRAINTS AT 0230, PT TOLERATED CHANGE WELL. PT HAS BEEN VERY DISTRUSTFUL OF STAFF AND EASILY IRRITATED. SCHEDULED ATIVAN AND PRN AGITATION MEDS GIVEN DOCUMENTED. CONTINOUS OBSERVATION MAINTAINED THROUGHOUT SHIFT.
--- NOTE | 2021-11-13 08:22 | HC ---
[facility] [place] [address] CONSULTATION Name: FELIPA HADLEY Room #: [facility]- ADM IN M.R.#: [id number] Admission: 11/05/21 Attend Phys: Karo Flores Discharge: Date of : 87 Report #: [id number] THIS REPORT FOR: cc: David Umanzor MD, Neal A. MD Barry,Sumanth Dale MD ~ DATE OF SERVICE: 11/12/2021 INFECTIOUS DISEASE CONSULTATION ATTENDING PHYSICIAN: Dr. Flores. REASON FOR EVALUATION: Nosocomial fevers, primarily low-grade. HISTORY OF PRESENT ILLNESS: Chart reviewed. The patient examined. This is a 36-year-old gentleman with paranoid schizophrenia, bipolar disorder. He was hospitalized a week ago with altered mental status and seizure, reporting he was acting bizarre. He had apparently stopped taking his psychiatric medicines few days prior that was treated with the seizures apparently at that time. He has been hospitalized, attempted to reinitiate his therapy. He is unable to give any details of his history. He is quite agitated and aggressive. He is actually restrained at this point. Vitals have been collected over the course of the hospitalization and noted to have low-grade temperature elevations even dating back to 11/07/2021, more evident by 11/09/2021, high of 100.5 has been recorded. He initially was started on therapy with vancomycin and Zosyn and latter was discontinued on 11/09/2021 and one former previous to that. He has had evaluation on urinalysis that was collected from 11/11/2021 and was generally unremarkable. Chest x-ray showed improving infiltrates, felt to be edema. Blood cultures have been collected and are sterile thus far. He was noted to have significant acidemia on blood gas with pH 6.908 on the initial testing on 11/05/2021. Review of additional labs noted some mild elevation of the liver function tests on admission, specifically AST, has undergone imaging studies including head CT, which showed no acute abnormalities. He did have an abdominal plain film which was ordered; however, canceled. He has been unwilling to participate in his care. ALLERGIES: GEODON. CURRENT MEDICATIONS: Include lorazepam, chlorpromazine, valproate, Haldol, clonazepam, pantoprazole, ipratropium and albuterol inhaler, quetiapine, enoxaparin, acetaminophen. PAST MEDICAL HISTORY: As described above paranoid schizophrenia, bipolar disease, reflux, PTSD, panic attacks. SOCIAL HISTORY: Former smoker, fairly regular alcohol, not to excess; previous [facility] [address] [place] [address] CONSULTATION Name: FELIPA HADLEY GOODELLS Room #: [facility] IN M.R.#: [id number] Admission: 11/05/21 Attend Phys: Karo Flores Discharge: Date of : 87 Report #: [id number] history of marijuana use. FAMILY HISTORY: Noncontributory. REVIEW OF SYSTEMS: Unobtainable. PHYSICAL EXAMINATION: GENERAL: He is quite angry, aggressive. He is restrained. There is no evident focal weakness of the limbs. VITAL SIGNS: Temperature earlier 100.3, more recently 99.4; pulse 64, respirations 13, blood pressure 144/92. SKIN: Warm, dry, no rashes. HEENT: Exam is limited. NECK: Supple. LUNGS: To have listed to those appear to be clear. ABDOMEN: There is no overt peritoneal signs due to percussion. GENITOURINARY AND RECTAL: Deferred. LABORATORY DATA: Blood cultures collected on 11/10/2021 are sterile thus far. Coronavirus testing was negative. Chest x-ray and urinalysis described above. ASSESSMENT AND PLAN: Low-grade temperature elevations. The patient has been difficult to evaluate. He has been refusing. On exam, there is not overt evidence to support by at least some basic labs of x-ray of pneumonitis or urinary tract infection, which would be a perhaps common. It can exclude either drug-induced hepatitis or simply a hypersensitivity to one of his many medications. It is notable he has a temperature/pulse dissociation at times. I would consider stopping all nonessential medicines. Certainly, it could be a viral etiology or a noninfectious cause as well. He has been refusing blood draws, but we will go and check an abdominal ultrasound. I was unable to examine his teeth that is certainly potential as well. I think we will hold on antibiotics at present. <ELECTRONICALLY SIGNED> By: Sumanth Boudreaux MD 11/13/21 0822 [id number] Sumanth Boudreaux MD /nt
--- NOTE | 2021-11-13 11:33 | 2DMMODE ---
[facility] [address] [place] [address] 2 D/M-MODE ECHOCARDIOGRAM Name: FELIPA HADLEY RAY Room #: 244-P ADM IN M.R.#: [id number] Admission: 11/05/21 Attend Phys: Karo Flores Discharge: Date of : 87 Report #: [id number] THIS REPORT FOR: cc: David Umanzor MD, Neal A. MD Park, Jin S. MD ~ APPROVED REPORT Study performed: 11/13/2021 10:48:45 EXAM: Comprehensive 2D, Doppler, and color-flow Echocardiogram Patient Location: ICU Room #: 244 Status: routine BSA: 2.56 HR: 108 bpm BP: 124/72 mmHg Rhythm: Tachycardia Other Information Study Quality: Adequate/flat on back. Indications Arrhythmia 2D Dimensions RVDd: 37.16 mm IVSd: 8.69 (7-11mm) LVOT Diam: 22.31 (18-24mm) LVDd: 51.33 mm PWd: 8.23 (7-11mm) Ascending Ao: 34.89 (22-36mm) LVDs: 36.31 (25-40mm) Left Atrium: 37.03 (27-40mm) Aortic Root: 33.76 mm Volumes Left Atrial Volume (Systole) Single Plane 4CH: 36.49 mL Single Plane 2CH: 55.50 mL LA ESV Index: 19.00 mL/m2 Aortic Valve AoV Peak Jarrell.: 1.60 m/s AO Peak Gr.: 10.28 mmHg LVOT Max P.85 mmHg LVOT Max V: 1.10 m/s KITTY Vmax: 2.[address] [facility] [address] [place] [address] 2 D/M-MODE ECHOCARDIOGRAM Name: FELIPA HADLEY MACON Room #: 244-P [facility] IN [facility]#: [id number] Admission: 11/05/21 Attend Phys: Karo Tubbs Discharge: Date of : 87 Report #: [id number] Pulmonary Valve PV Peak Jarrell.: 1.28 m/s PV Peak Gr.: 6.57 mmHg Tricuspid Valve TR Peak Jarrell.: 3.04 m/s RAP Estimate: 5.00 mmHg TR Peak Gr.: 37.00 mmHg PA Pressure: 42.00 mmHg Left Ventricle The left ventricle is normal size. There is normal LV segmental wall motion. There is normal left ventricular wall thickness. Left ventricular systolic function is normal. LVEF is 55-60%. Right Ventricle The right ventricle is normal size. The right ventricular systolic function is normal. Atria The left atrium size is normal. The right atrium size is normal. Aortic Valve The aortic valve is normal in structure. No aortic regurgitation is present. There is no aortic valvular stenosis. Mitral Valve The mitral valve is normal in structure. Mild mitral regurgitation. Tricuspid Valve The tricuspid valve is normal in structure. Trace to mild tricuspid regurgitation. Estimated PAP is 42mmHg. Pulmonic Valve The pulmonary valve is normal in structure. There is no pulmonic valvular regurgitation. Great Vessels The aortic root is normal in size. The ascending aorta is normal in size. IVC is normal in size and collapses >50% with inspiration. Pericardium There is no pericardial effusion. [facility] [address] [address] 2 D/M-MODE ECHOCARDIOGRAM Name: FELIPA HADLEY MACON Room #: [facility] IN .R.#: [id number] Admission: 11/05/21 Attend Phys: Karo Tubbs Discharge: Date of : 87 Report #: [id number] <Conclusion> The left ventricle is normal size. There is normal left ventricular wall thickness. Left ventricular systolic function is normal. The right ventricle is normal size. The left atrium size is normal. The aortic valve is normal in structure. Mild mitral regurgitation. Trace to mild tricuspid regurgitation. Estimated PAP is 42mmHg. <ELECTRONICALLY SIGNED> By: Hammad Mcguire MD 11/13/21 1133 1133 113 Hammad Mcguire MD /INF
--- NOTE | 2021-11-13 14:24 | NUR ---
Discussed during los with the attending physician. Cont. to require sitter. restraints. Will need inpt psych placement when he is medical stable for dc. No anticipated dc over the weekend. Will cont. following as needed.
--- NOTE | 2021-11-13 18:22 | NUR ---
DISCHARGE FOCUS IS TO HAVE PATIENT VOLUNTARILY TAKE SCHEDULED ORAL PSYCH MEDICATIONS WITHOUT DIFFICULTY/DIVERTING FROM THE SCHEDULE. AT THAT POINT PATIENT MAY BE RELEASED OFF OF MINIMALLY RESTRICTIVE RESTRAINTS. CURRENTLY PATIENT WAS ABLE TO BE ADVANCED FROM SECURITY BILATERAL RESTRAINT TO SINGLE SECURITY RESTRAINT ON THE LEFT HAND SIDE, AND SOFT WRIST RESTRAINT ON THE R HAND SIDE. PT AT THE TIME OF 1800 MEDS, THERE WAS ALOT OF RESISTANCE/HESITATION/DISTRUST OF MEDICATION AND STAFF MEMBERS. PT WAS STILL HAVING THOUGHTS OF DISTRUST AND DID NOT BELIEVE MEDICATION WAS NECESSARY FOR HIM EVEN AFTER BEING EXPLAINED SEVERAL TIMES. SECURITY HAD TO BE CALLED AND AFTER 10-15 MINUTES OF EXPLANATION PATIENT WAS FINALLY RECEPTIVE TO TAKING THE MEDS BUT WAS STILL VERY DISTRUSTFUL OF THE NURSE AND DID NOT WILLINGLY PARTICIPATE IN CARE. PATIENT OVERALL IS STILL DISTRUSTFUL BUT NOT AGGRESSIVE, PERHAPS IF PATIENT CONTINUES TO BE DISTRUSTFUL AND STOPS TAKING PO PSYCH MEDS, PATIENT MAY REVERT BACK TO BECOMING AGGRESSIVE AGAIN. MOTHER STOPPED BY THIS SHIFT AND WAS ABLE TO SEE THE PATIENT, RN EXPLAINED THE SITUATION THOROUGHLY, PER MOTHER PATIENT WAS FOUND LYING IN THE MIDDLE OF STREET AFTER A SEIZURE EPISODE AND THIS BEHAVIOUR HAS NOT BEEN WITNESSED SINCE 2006. RN RECOMMENDS CONTINUING TO USE SECURITY A RESOURCE FOR PARTICIPATING IN CARE AND APPRECIATES THE SECURITY TEAM FOR BEING INVOLVED AND ASSISTING DURING THE CHALLENGING TIMES OF THIS PATIENT'S CARE.
[2021-11-14] VITALS (12 sets, daily range): BP systolic 115–167; BP diastolic 65–97
--- NOTE | 2021-11-14 12:20 | NUR ---
PT IS REFUSING ALL PO MEDICATIONS AT THIS TIME, KEEPS STATING HES "FINE" OVER AND OVER. KEEPS STATING HE DOES NOT UNDERSTAND WHY HE'S HERE, WHY HE'S RESTRAINED. PT IS TALKING TO HIMSELF, WANTS SADLER TAKEN OUT, WANTS RESTRAINTS REMOVED AND IS BEING VERY AGGRESSIVE AT THIS POINT IN TIME. DO NOT FEEL COMFORTABLE REMOVING PT RESTRAINTS HE HAS A VERY ANGRY AND CONFRONTATIONAL TONE/APPROACH TO EACH INTERACTION WITH HIM. WILL ATTEMPT TO CONTACT HOSPITALIST REGARDING CARE AND WILL ATTEMPT TO CONTACH FACING BASTER PSYCH PROVIDER FOR THIS PATIENT.
--- NOTE | 2021-11-14 19:35 | NUR ---
RESTRAINTS LOOSENED/REMOVED SO PATIENT COULD EAT - SECURITY PRESENT IN THE ROOM. PT REFUSED 1/2 MEDICATIONS. EDUCATION WAS GIVEN.
--- NOTE | 2021-11-14 23:10 | NUR ---
PT REFUSED MIDNOC MEDICATION. PT EDUCATED ON IMPORTANCE OF TAKING MEDICATION.
[2021-11-15] VITALS (32 sets, daily range): BP systolic 124–170; BP diastolic 67–114
--- NOTE | 2021-11-15 00:19 | NUR ---
PER David MARTÍNEZ PORTFOLIO ACCOUNTANT PATIENT OK TO SPOT CHECK HR AND RHYTHM VIA TELE LEADS D/T PT NONCOMPLIANCE.
--- NOTE | 2021-11-15 00:19 | NUR ---
NOTIFIED David MARTÍNEZ NP D/T PT REMOVING TELE LEADS. WILL SPOT MONITOR HEART RATE AND BP.
--- NOTE | 2021-11-15 05:00 | NUR ---
PATIENT ASKED THIS RN TO CALL HIS MOM. PHONE CALL PLACED TO MOM SO PATIENT COULD SPEAK WITH FAMILY DIRECTLY. PT SPOKE BRIEFLY WITH MOTHER. THIS RN UPDATED FAMILY ON PATIENT CURRENT STATUS.
--- NOTE | 2021-11-15 05:20 | NUR ---
PT REFUSED TO LET THIS RN SPOT CHECK HIS HR/RHYTHM. ALL TELE LEADS REMAIN OFF OF PATIENT. PATIENT MISTRUSTFUL AND STILL REFUSING NEARLY ALL CARE INCLUDING MEDS. SECURITY UTILIZED FOR COMPLIANCE OF PO MEDS WITH GOOD RESULTS.
[2021-11-16] VITALS (25 sets, daily range): BP systolic 114–161; BP diastolic 71–115
--- NOTE | 2021-11-16 00:38 | NUR ---
PT refusing most medications despite security coming to bedside to assist. Notified ANODE WORKER Eron of pts refusal of medications. No new orders.
--- NOTE | 2021-11-16 08:41 | NUR ---
PT WAS ABLE TO TAKE PO MEDS THIS MORNING, PT TOOK IT AFTER EATING FOOD, PT WAS DIFFICULT/INAPPROPERIATE/DISRESPECTFUL/DISTRUSTFUL TO THE RN LAST NIGHT, DID NOT CALL OUT FOR BATHROOM NEEDS. ALTHOUGH PT WAS ABLE TO TAKE PO MEDS UPON REQUEST THIS MORNING, PT HAS NOT BEEN CONSISTENT AND COOPERATIVE WITH MED REGIMEN OVER THE WEEKEND. RN IS DOUBTFUL WHETHER THIS PT WILL CONTINUE IN THIS POSITIVE TREND OR PT MAY REVERT COURSE, RESTRAINT WILL STAY ON FOR NOW PT IS STILL UNPREDICTABLE/UNCOOPERATIVE.
--- NOTE | 2021-11-16 11:33 | NUR ---
Discussed during los and unit rounds. Cont to required 2 point restraints. He refusing cares and medication. Per attending physician he is not medical stable to dc to inpt psych. When he is cleared for inpt psych, will send referrals, he is involuntary. Will cont following as needed. Dr Sosa to see.
[2021-11-16 19:06] LABS: SYPHILIS AB Non Reactive (Non Reactive)
[2021-11-17] VITALS (7 sets, daily range): BP systolic 119–154; BP diastolic 78–97
--- NOTE | 2021-11-17 05:08 | NUR ---
Pt has been calm and pleasant during shift. Pt got up and sat on chair around 1999, security was called to help pt back to bed. Pt calmly went to bed without resistance. pt accepted to take his PO med during shift, but refused his sub q (heparin shot)
--- NOTE | 2021-11-17 06:10 | NUR ---
Pt refused his 0600 and 0700 PO meds
--- NOTE | 2021-11-17 07:58 | NUR ---
PT IS BEING VERY AGGRESSIVE AND HOSTILE TOWARDS NURSING STAFF THIS MORNING REPEATEDLY CALLING THIS RN "BOY" AND WILL NOT ALLOW RN TO COMPLETE HEAD TO TOE EXAM. PT REFUSING ALL MEDICATIONS BY MOUTH AT THIS TIME WELL. PT BACK IN 2PT RESTRAINTS.
[2021-11-17 08:07] LABS: HIV ANTIBODY Non Reactive (Non Reactive)
--- NOTE | 2021-11-17 11:26 | NUR ---
Case discussed in ICU rounds. Pt transfering out of the ICU today. Pt continues with low grade fever. All workup is negative for source. Possibley medication induced per the attending. Psych is following him closely. He will need to be off IV atb and without fever to go to inpt psych. Involuntary placement anticipated. His mom is getting updates daily from the unit rn. Will continue to follow and initiate inpt psych tx request once medically clearance rec'd.
--- NOTE | 2021-11-17 12:26 | NUR ---
PATIENT RECEIVED FROM CCU. ALERT, ORIENTED X 2. SECURITY HERE TO ASSIST PT TO BED. RESTRAINTS REAPPLIED. PATIENT STAES HE UNDERSTANDS NEED FOR CONTINUED RESTRAINTS, YET WILL ARGUE WITH STAFF ABOUT NEED. ORIENTED TO ROOM, PLAN OF CARE
--- NOTE | 2021-11-17 13:55 | NUR ---
PATIENT REFUSING TO TAKE SCHEDULED MEDICATION. AGITATION GRADUALLY INCREASING SINCE ARRIVAL ON UNIT. REFUSING LUNCH. ARGUMENTATIVE WITH STFF, STRUGGLING AGAINST RESTRAINTS. SECURITY CALLED SO THAT RN CAN ADMINISTER IM MEDICATION FOR AGITATION. GAVE HALDOL/ATIVAN AND BENEDRYL IM TO PATIENTS ANTERIOR THIGH. SECURITY REMAINED WITH PATIENT WHILE ADMINISTERED MEDS. PATIENT RAMBLING AND TALKING NONSTOP DURING THIS TIME WITH VOICE RAISED AND STRUGGLING AGAINST RESTRAINTS
--- NOTE | 2021-11-17 17:22 | NUR ---
PATIENT REFUSING TO TAKE 1600/1700 MEDICATIONS. APPEARS TO GET AGITATED WHEN NURSING STAFF IN ROOM TO DO CARES;
--- NOTE | 2021-11-18 05:41 | NUR ---
ASSUMED CARE OF PT AT 1900. PT ASSESSED TO BE AOX4 EXTREMELY ANXIOUS 36 PRESENTING WITH UNCONTROLLED PSYCH DISORDERS. PT WAS IN SOFT UPPERS AT START OF SHIFT AND EXPRESSED THAT HE WOULD LIKE TO BE OUT OF THEM AND LEAVE THE HOSPITAL. TALKED TO THE PT AT LENGTH I HAVE HAD HIM A WEEK PREVIOUSLY BEFORE PHYSICAL INCIDENT. EDUCATED PT THAT UNTIL HE COULD TAKE HIS NORMAL MEDICATION REGULARLY, CONDUCT HIMSELF APPROPRIATELY TO STAFF, AND COULD MAINTAIN HIS OWN MAINTENANCE HE WOULD HAVE TROUBLE BEING DISCHARGE. AFTER TALKING AT EXTENSIVE LENGTH, PT SAYS THAT HE HAS BEEN REFUSING MEDS THEY ARE PRESENTED TO HIM 'SEIZURE MEDS' (CONFUSING HIM THAT THEY CAUSE SEIZURES OR ARE RANDOM PILLS) INSTEAD OF BEING TOLD THEY ARE KLONIPIN AND OXCARBAZEPINE. ALSO EXPRESSED THAT HE DOES NOT LIKE THE OTHER MEDS AND REEDUCATED HIM THAT THOSE DO NOT NEED TO BE GIVEN UNLESS HE DISPLAYS INAPPROPRIATE AND UNSAFE BEHAVIOUR. AFTER AN HOUR OR SO TRIALING RESTRAINTS ON BOTH SIDE TO ALLOW HIM TO REST, HE CONTINUED TO BE PLEASANT AND COOPERATIVE. AROUND 1999 D/CLAIR RESTRAINTS. PT CONTINUED TO BE EXTREMELY COOPERATIVE, CALM, UNDERSTANDING, AND APPROPRIATE THROUGHOUT THE REST OF THE NIGHT. CALLED TO USE THE RESTROOM, TOOK ALL MEDS, CONVERSED APPROPRIATELY WITH STAFF, TOOK A SHOWER, WAS ABLE TO AMBULATE WITHOUT ASSISTANCE, DID NOT REQUIRE FURTHER MEDICATION, AND ASSISTED NURSE IN UPDATING HIS MOM ON HIS COOPERATION WITH NURSE AND PLAN TO HAVE A FEW GOOD DAYS TO SET HIM UP FOR DISCHARGE. WILL UPDATE DAY SHIFT RN. PLEASE TREAT PT RESPECTFULLY SO NOT TO SET HIM OFF.
[2021-11-18 07:32] VITALS: BP 140/92
--- NOTE | 2021-11-18 10:34 | NUR ---
ASSUMED CARE OF PT AT 0700 THIS MORNING. PT IS A/OX4 AND SPEAKS STRONGLY ABOUT SPIRITUAL MATTERS. PT HAS COMPLAINT OF PAIN IN SHOULDER. APPLIED ARM SLING TO LT SHOULDER. ASSESSMENTS NOTED IN CHART AND OTHERWISE UNREMARKABLE. PT IS UP WITH SB ASST AND FALL PRECAUTIONS IN PLACE. CALL LIGHT AND OTHER NEEDS ARE IN REACH. MEDS AND TX GIVEN NEEDED AND SCHEDULED. ALONG WITH FREQUENT ROUNDS. WILL MONITOR AND NOTE ANY CHANGES.
[2021-11-18] MEDS ORDERED: CLONAZEPAM2 MG PO (11:06)
[2021-11-18] MEDS ORDERED: OXCARBAZEPINE600 MG PO (11:08)
[2021-11-18] MEDS ORDERED: PROTONIX 20 MG20 M1 PO (11:09)
[2021-11-18 11:38] VITALS: BP 140/92
--- NOTE | 2021-11-18 16:13 | NUR ---
Patient became more alert today and stable for dc per Dr Sosa. Patient at baseline field captain. Plan home no needs
== END 2021-11-18 12:08 | disposition home or self-care (01) | DRG 100 ==
LOC: ER 17:12 → EROBS 19:59 → 2N 19:59 → ICU 11-11 23:55 → 4S 11-17 11:25
PROVIDERS: Internal Medicine; Nurse Practitioner Family; Psychiatry & Neurology Psychiatry; Specialist; Student in an Organized Health Care Education/Training Program; ADMIT Hospitalist; ATTEND Hospitalist
PROC: 5A1935Z Respiratory Ventilation, Less than 24 Consecutive Hours (ICD-10-PCS; principal; 2021-11-05)
PROC: 0BH17EZ Insertion of Endotracheal Airway into Trachea, Via Natural or Artificial Opening (ICD-10-PCS; principal; 2021-11-05)
PROC: 5A0935A Assistance with Respiratory Ventilation, Less than 24 Consecutive Hours, High Flow/Velocity Cannula (ICD-10-PCS; 2021-11-06)
PROC: 0RSKXZZ Reposition Left Shoulder Joint, External Approach (ICD-10-PCS; 2021-11-06)
PROC: 02HV33Z Insertion of Infusion Device into Superior Vena Cava, Percutaneous Approach (ICD-10-PCS; 2021-11-06)
DX: G40.901 Epilepsy, unspecified, not intractable, with status epilepticus (principal); J96.01 Acute respiratory failure with hypoxia; G92.8 Other toxic encephalopathy; J96.02 Acute respiratory failure with hypercapnia; E87.1 Hypo-osmolality and hyponatremia; F20.0 Paranoid schizophrenia; E87.2 Acidosis; F20.2 Catatonic schizophrenia; S43.005A Unspecified dislocation of left shoulder joint, initial encounter; Z20.822 Contact with and (suspected) exposure to COVID-19; K21.9 Gastro-esophageal reflux disease without esophagitis; F41.9 Anxiety disorder, unspecified; F31.9 Bipolar disorder, unspecified; F43.10 Post-traumatic stress disorder, unspecified; R73.9 Hyperglycemia, unspecified; R41.0 Disorientation, unspecified; G47.00 Insomnia, unspecified; Z83.3 Family history of diabetes mellitus; Z90.49 Acquired absence of other specified parts of digestive tract; Z87.891 Personal history of nicotine dependence; X58.XXXA Exposure to other specified factors, initial encounter; Y93.89 Activity, other specified; Y92.89 Other specified places as the place of occurrence of the external cause; Y99.8 Other external cause status
CPT/HCPCS: 10078; 10081; 10195; 10196; 62110; 62900